=== PATIENT | female | born 1985 | race Asian ===

== ENCOUNTER 2024-03-24 19:46 | Emergency (ER) | payer SELFPAY ==
[~2024-03-24] VITALS: Ht 152.4 cm; Wt 54.0 kg
[2024-03-24 20:11] VITALS: O2SAT 100
[2024-03-24 20:31] LABS: CLARITY URINE CLOUDY (CLEAR); COLOR URINE RED (YELLOW); GLUCOSE URINE NEGATIVE (NEGATIVE); KETONES URINE 1+ (NEGATIVE); LEUKOCYTE ESTERASE URINE TRACE (NEGATIVE); NITRITE URINE NEGATIVE (NEGATIVE); OCCULT BLOOD URINE 3+ (NEGATIVE); PROTEIN URINE 1+ (NEGATIVE); SPECIFIC GRAVITY URINE 1.009 (1.005-1.030); UROBILINOGEN URINE 0.2 E.U./dL (0.2-1.0)
[2024-03-24 20:53] LABS: BASOPHILS % 1.2 % (0.0-2.0); EOSINOPHILS % 1.9 % (0.0-5.0); HEMATOCRIT. 38.9 % (36.0-48.0); HEMOGLOBIN. 12.8 g/dL (12.0-16.0); LYMPHOCYTES % 19.7 % (20.0-50.0); MEAN CORPUSCULAR HEMOGLOBIN 29.6 pg (28.0-32.0); MEAN CORPUSCULAR HGB CONC 32.8 g/dL (31.0-37.0); MEAN CORPUSCULAR VOLUME 90.1 fL (81.0-99.0); MEAN PLATELET VOLUME 8.6 fl (7.4-10.4); MONOCYTES % 5.6 % (2.0-8.0); NEUTROPHILS % 71.6 % (40.0-76.0); PLATELET 307 x1000/uL (130-400); RED BLOOD CELL COUNT 4.32 mill/uL (4.2-5.4); RED CELL DISTRIBUTION WIDTH 14.3 % (11.6-14.6); WHITE BLOOD COUNT 12.1 x1000/uL (4.5-11.0)
[2024-03-24 20:54] LABS: CHLORIDE 105 mEq/L (98-107); POTASSIUM 3.6 mEq/L (3.5-5.1); SODIUM 138 mEq/L (136-145)
[2024-03-24 20:55] LABS: CARBON DIOXIDE 23 mEq/L (21-32)
[2024-03-24 20:56] LABS: CALCIUM 9.4 mg/dL (8.7-10.4)
[2024-03-24 20:59] LABS: HCG SCREEN POSITIVE
[2024-03-24 21:00] LABS: CREATININE 0.6 mg/dL (0.6-1.0); GLUCOSE 100 mg/dL (70-105)
[2024-03-24 21:01] LABS: UREA NITROGEN BLOOD 12 mg/dL (9-23)
[2024-03-24 21:01] LABS: BACTERIA URINE 1+; RBC URINE TNTC /hpf (0-2); SQUAMOUS EPITHELIAL CELL URINE FEW /lpf (RARE/1+); WBC URINE 0-2 /hpf (0-2)
[2024-03-24 21:14] LABS: B-HCG QUANTITATIVE 10218 mIU/mL (<3)
[2024-03-24 22:25] VITALS: BP 116/73; PULSE 86; RESP 20; TEMP 36.83628; O2SAT 98
== END 2024-03-24 22:25 | disposition home or self-care (01) ==
LOC: ER 19:46
DX: O46.91 Antepartum hemorrhage, unspecified, first trimester (principal); Z3A.01 Less than 8 weeks gestation of pregnancy
CPT/HCPCS: 36415; 76801; 80048; 81003; 81025; 84702; 84703; 85025; 86850; 86900; 99284